=== PATIENT | female | born 1950 ===

== ENCOUNTER 2023-04-18 06:43 | Outpatient (CLI) | payer OTHER | END 2023-04-18 06:45 | disposition home or self-care (01) | LOC: EKG 06:43 → LAB 06:43 | PROVIDERS: ATTEND Obstetrics & Gynecology Gynecology | DX: Z01.810 Encounter for preprocedural cardiovascular examination (principal) ==

== ENCOUNTER 2023-05-03 06:42 | Day surgery (SDC) | payer OTHER ==
[~2023-05-03 06:42] MED LIST: ATORVASTATIN CA40 MG PO; COZAAR50 MG PO; GLIPIZIDE5 MG PO; MELOXICAM15 MG PO; PANTOPRAZOLE SO40 MG PO; TIROSINT150 MCG PO; VITAMIN D3 PO
[2023-05-03] MEDS ORDERED: TRAM1TAB98 PO (12:50)
== END 2023-05-03 15:00 | disposition home or self-care (01) ==
LOC: CIR.AMB 06:42
PROVIDERS: ATTEND Obstetrics & Gynecology Gynecology
DX: N81.6 Rectocele (principal); N81.5 Vaginal enterocele; N81.84 Pelvic muscle wasting; Z20.822 Contact with and (suspected) exposure to COVID-19; E03.9 Hypothyroidism, unspecified; E11.9 Type 2 diabetes mellitus without complications; I10 Essential (primary) hypertension